=== PATIENT | female | born 1960 | race Caucasian/White ===

== ENCOUNTER 2017-08-20 13:17 | Inpatient (IN) | payer MEDICAID ==
[~2017-08-20] VITALS: Ht 152.4 cm; Wt 63.0 kg
--- NOTE | 2017-08-20 13:18 | NUR ---
PT TRANSFERRED FROM EMS [facility] TO BED 6
[2017-08-20 13:20] VITALS: BP 109/84
--- NOTE | 2017-08-20 13:20 | NUR ---
ASSUMED CARE OF PT AT THIS TIME. PT BIBA AND RECEIVED TO BED 6 VIA GURNEY. C/O ALOC WHILE RECEIVING DIALYSIS TODAY. PT IS ALERT TO NAME AND PLACE. C/O CP AND ABDOMINAL PAIN. NO RESPIRATORY DISTRESS NOTED. AAOX2 AND UNABLE TO AMBULATE; PATIENT STATES PAIN OF 9/10; VSS; PATIENT POSITIONED FOR COMFORT; HOB ELEVATED; BEDRAILS UP X2; BED DOWN. ER MD MADE AWARE OF PT STATUS. WILL CONTINUE TO MONITOR.
[2017-08-20] MEDS ORDERED: KETOROLAC 15 MG/ML VIAL IVP ONE (13:30)
[2017-08-20] MEDS ORDERED: NACL 0.9% 250 ML IV ONE (13:30)
[2017-08-20] MEDS ORDERED: ACETAMINOPHEN 325 MG TAB PO ONE (13:30)
[2017-08-20] MEDS ORDERED: ONDANSETRON 4 MG/2 ML VIAL IVP ONE (13:30)
--- NOTE | 2017-08-20 13:32 | NUR ---
REPORT GIVEN TO YVAN BOUDREAUX
[2017-08-20] MEDS ORDERED: PHO667 PO (13:42)
[2017-08-20] MEDS ORDERED: VITA1TAB83 PO (13:42)
--- NOTE | 2017-08-20 13:45 | NUR ---
ABG PROCEDURE COMPLETED SATURATION FLUCTUATION 89%-91% POST PUNCTURE PLACED PATIENT ON SUPPLEMENTAL OXYGEN AT 2 LPM VIA ALYSSA BOUDREAUX/YVAN NOTIFIED
[2017-08-20 14:24] LABS: HEMATOCRIT 22.6 % (36-48); HEMOGLOBIN 7.5 g/dL (12.0-16.0); MEAN CORPUSCULAR HEMOGLOBIN 29 pg (27-31); MEAN CORPUSCULAR HGB CONC 33 g/dL (33-37); MEAN CORPUSCULAR VOLUME 86.3 fL (80-94); PLATELET COUNT (AUTO) 324 K/uL (140-450); RED BLOOD CELL COUNT(AUTO) 2.62 MIL/uL (4.20-5.40); RED CELL DISTRIBUTION WIDTH 15.6 % (11.6-13.7); WHITE BLOOD COUNT (AUTO) 14.3 K/uL (4.8-10.8)
[2017-08-20 14:31] LABS: PROTHROMBIN TIME 11.3 secs (10.8-13.4)
[2017-08-20 14:37] LABS: ALBUMIN 1.8 g/dL (3.4-5.0); ANION GAP 11.8 (8-16); CARBON DIOXIDE 30.3 mmol/L (21-32); POTASSIUM 4.1 mmol/L (3.5-5.1); TOTAL BILIRUBIN 1.3 mg/dL (0.0-1.0)
[2017-08-20 14:41] LABS: LYMPHOCYTES % (MANUAL) 2 % (20-46); MONOCYTES % (MANUAL) 4 % (5-12)
[2017-08-20 14:50] LABS: CREATININE 4.1 mg/dL (0.6-1.3)
[2017-08-20] MEDS ORDERED: PIPERACILLIN/TAZOBACTAM 3.375 GM in DEXTROSE 5% 50 ML IV ONE (15:20)
[2017-08-20] MEDS ORDERED: PIPERACILLIN/TAZOBACTAM 3.375 GM VIAL IV ONE (15:27)
[2017-08-20] MEDS ORDERED: LORazepam 2 MG/ML VIAL IM/IVP PRN (16:05)
[2017-08-20] MEDS: NACL 0.9% 1,000 ML IV SCH (16:05)
[2017-08-20] MEDS ORDERED: ACETAMINOPHEN 325 MG TAB PO PRN (16:05)
[2017-08-20] MEDS ORDERED: DOCUSATE SODIUM 100 MG GELCAP PO PRN (16:05)
--- NOTE | 2017-08-20 16:45 | NUR ---
Patient will be admitted to care of MD RUSTY. Admited to TELE. Will go to room 114A. Belongings list completed. Report to YVAN BOSTON.
[2017-08-20 17:00] VITALS: BP 101/47
--- NOTE | 2017-08-20 17:00 | NUR ---
PATIENT BROUGHT TO UNIT VIA GURNEY FROM THE ER. PATIENT IN STABLE CONDITION. IS AAOX3. HAS IV TO THE RIGHT AC 18G, SALINE LOCK AT THIS TIME. HAS LEFT AV SHUNT. SKIN IS INTACT. MOVED HERSELF FROM THE GURNEY TO THE BED. ORIENTED PATIENT TO THE ROOM. EXPLAINED THE CALL LIGHT TO THE PATIENT AND SHE VERBALIZED UNDERSTANDING. BED IN LOWEST POSITION, SIDE RAILS UP X2, CALL LIGHT WITHIN REACH. WILL CONTINUE TO MONITOR.
[2017-08-20 17:14] LABS: CHOL/HDL RATIO 3.8 (1-4.5); MAGNESIUM 1.6 mg/dL (1.8-2.4); PHOSPHORUS 2.5 mg/dL (2.5-4.9); THYROID STIMULATING HORMONE 1.95 uIU/mL (0.34-3.74)
[2017-08-20] MEDS ORDERED: DEXTROSE 50% 50 ML SYR IVP PRN (19:25)
[2017-08-20] MEDS ORDERED: INSULIN LISPRO SLIDING SCALE 100 UNITS/ML VIAL SUBQ PRN (19:25)
--- NOTE | 2017-08-20 19:30 | NUR ---
ENDORSED PATIENT TO CONSTRUCTION SITE CROSSING GUARD RN FOR CONTINUITY OF CARE. PATIENT IN STABLE CONDITION.
--- NOTE | 2017-08-20 19:31 | NUR ---
REPORT RECEIVED FROM AM NURSE. PT IN STABLE CONDITION. AAOX3. INTRODUCED SELF AND BOARD UPDATED. HEART SOUNDS NORMAL. LUNG SOUNDS CLEAR BILATERALLY. BOWEL SOUNDS ACTIVE X4 QUADRANTS. IV SITE PATENT AND INTACT. SKIN WARM, DRY, AND INTACT WITH NO OPEN WOUNDS. LEFT UPPER CHEST AV SHUNT FOR HEMODIALYSIS ACCESS. PT REPORTS PAIN 6/10. WILL MEDICATE. BED LOCKED IN LOW POSITION. CALL HARTLEY WITHIN REACH. WILL CONTINUE TO MONITOR.
[2017-08-20 19:58] LABS: APPEARANCE,URINE CLOUDY (CLEAR); BILIRUBIN,URINE NEGATIVE (NEGATIVE); BLOOD, URINE 2+ (NEGATIVE); COLOR,URINE YELLOW (YELLOW); LEUKOCYTE ESTERASE ,URINE 3+ (NEGATIVE); NITRITE, URINE NEGATIVE (NEGATIVE); UGLUCOSE NEGATIVE (NEGATIVE)
[2017-08-20 20:00] VITALS: BP 96/47
[2017-08-20] MEDS: PIPER/TAZO 2.25GM/D5W PREMIX 50 ML IV SCH (20:27)
[2017-08-20 20:29] LABS: WBC,URINE TOO MANY TO COUNT /HPF (0-5)
[2017-08-20 20:30] LABS: RBC,URINE 3-10 (FEW) /HPF (0-5)
--- NOTE | 2017-08-20 20:30 | NUR ---
PM MEDS GIVEN. PT TOLERATED WELL. NORCO GIVEN FOR PAIN LEVEL 6/10.
[2017-08-20] MEDS: BLOOD GLUCOSE MONITORING 1 DEV DEV FS SCH (20:36)
[2017-08-20 20:37] LABS: BARBITURATE, URINE NEG. ng/ml (NEG <=200); BENZODIAZEPINE, URINE NEG. ng/mL (NEG <=200); CANNABINOID, URINE NEG. ng/mL (NEG <=50); COCAINE, URINE NEG. ng/mL (NEG <=300); OPIATE, URINE POS. ng/mL (NEG <=2000); PHENCYCLIDINE SCREEN,URINE NEG. ng/mL (NEG <=25)
[2017-08-20] MEDS: HYDROcodone/APAP 5/325 MG 1 TAB TAB PO PRN (20:41)
[2017-08-20] MEDS ORDERED: MAGNESIUM OXIDE 400 MG TAB PO SCH (21:00)
[2017-08-20] MEDS ORDERED: BISACODYL 10 MG SUPP RC SCH (21:00)
--- NOTE | 2017-08-20 21:06 | NUR ---
2100 GAVE SPUTUM CUP TO PATIENT. FAMILY MEMBERS EXPLAINED TO PT IN [place] TO GIVE SAMPLE. PT UNABLE TO AT THIS TIME
[2017-08-20] MEDS ORDERED: ALBUTEROL SULFATE/IPRATROPIU 3 ML SOL IH PRN (21:25)
[2017-08-20] MEDS: DOCUSATE SODIUM 100 MG GELCAP PO SCH (21:26)
--- NOTE | 2017-08-20 23:25 | NUR ---
PT ASLEEP BUT AROUSABLE. NOT IN ANY ACUTE DISTRESS. WILL CONTINUE TO MONITOR.
[2017-08-21] VITALS: BP 98/50
--- NOTE | 2017-08-21 00:30 | NUR ---
LAB ORDER FOR OCCULT BLOOD NEEDED. HEAVENLY SANTORO HELPED TRANSLATE NOT TO FLUSH SO SPECIMEN CAN BE ATTAINED.
--- NOTE | 2017-08-21 03:30 | NUR ---
PT HAS IV SITE PAIN. CANNULA WAS PULLED HALF WAY OUT WHEN ASSESSED. RIGHT AC 18G DC AT 0330.
[2017-08-21 04:00] VITALS: BP 104/48
[2017-08-21] MEDS: PIPER/TAZO 2.25GM/D5W PREMIX 50 ML IV SCH ×3 (04:00→21:35)
--- NOTE | 2017-08-21 04:00 | NUR ---
NEW IV PLACED. 24G RIGHT WRIST. 3 ATTEMPTS WERE MADE. PT TOLERATED WELL.
--- NOTE | 2017-08-21 04:00 | NUR ---
CARRI ANTON. PT TOLERATED WELL. WILL CONTINUE TO MONITOR.
[2017-08-21 06:23] LABS: BASOPHILS # (AUTO) 0.1 K/uL (0.00-0.22); EOSINOPHILS # (AUTO) 0.1 K/uL (0-0.4); EOSINOPHILS % (AUTO) 0.9 % (0.0-4.0); LYMPHOCYTES # (AUTO) 0.7 K/uL (2.5-16.5); LYMPHOCYTES % (AUTO) 6.2 % (20.5-51.1); MEAN CORPUSCULAR HEMOGLOBIN 29 pg (27-31); MEAN CORPUSCULAR HGB CONC 33 g/dL (33-37); MEAN CORPUSCULAR VOLUME 88.5 fL (80-94); MONOCYTES # (AUTO) 0.5 K/uL (0.8-1.0); MONOCYTES % (AUTO) 4.5 % (1.7-9.3); NEUTROPHILS # (AUTO) 10.6 K/uL (1.8-7.7); NEUTROPHILS % (AUTO) 87.4 % (42.2-75.2); PLATELET COUNT (AUTO) 291 K/uL (140-450); RED BLOOD CELL COUNT(AUTO) 2.37 MIL/uL (4.20-5.40); RED CELL DISTRIBUTION WIDTH 15.4 % (11.6-13.7); WHITE BLOOD COUNT (AUTO) 12.1 K/uL (4.8-10.8)
--- NOTE | 2017-08-21 06:30 | NUR ---
DOWNTIME FROM 4-6AM.
[2017-08-21] MEDS: BLOOD GLUCOSE MONITORING 1 DEV DEV FS SCH ×4 (06:47→21:30)
--- NOTE | 2017-08-21 07:15 | NUR ---
RECEIVED REPORT FROM CASH APPLICATIONS SPECIALIST NURSE AT BEDSIDE. PT IS A/O X4. R WRIST 20 G WITH NS AT 100ML/HR. L UPPER CHEST AV SHUNT. SKIN IS INTACT. BED IS LOCKED, LOW POSITION, SIDE RAILS UP X2. CALL LIGHT WITHIN REACH. BOARD UPDATED. WILL CONTINUE TO MONITOR.
--- NOTE | 2017-08-21 07:15 | NUR ---
REPORT GIVEN TO AM NURSE. PT IN STABLE CONDITION.
--- NOTE | 2017-08-21 07:33 | NUR ---
JANIS FROM LAB CALLED TO REPORT HGB 6.9 AND HCT 21. HAS BEEN NOTIFIED.
[2017-08-21 07:35] LABS: HEMOGLOBIN 6.9 g/dL (12.0-16.0)
--- NOTE | 2017-08-21 07:59 | NUR ---
PT CANNOT PRODUCE SPUTUM AT THIS TIME
[2017-08-21 08:00] VITALS: BP 108/52
[2017-08-21 08:22] LABS: PHOSPHORUS 4.1 mg/dL (2.5-4.9)
--- NOTE | 2017-08-21 08:35 | NUR ---
PATIENT HAS BEEN SCREENED AND CATEGORIZED HIGH NUTRITION RISK. PATIENT WILL BE SEEN WITHIN 1-2 DAYS OF ADMISSION. 08/21/17 08/22/[address]
[2017-08-21] MEDS: FERROUS GLUCONATE 324 MG TAB PO SCH ×2 (08:41→16:35)
[2017-08-21] MEDS: FOLIC ACID 1 MG TAB PO SCH (08:41)
[2017-08-21] MEDS: DOCUSATE SODIUM 100 MG GELCAP PO SCH ×2 (08:41→21:30)
[2017-08-21] MEDS: LACTOBACILLUS RHAMNOSUS GG 1 EACH CAP PO SCH (08:42)
[2017-08-21] MEDS: CALCIUM ACETATE 667 MG TAB PO SCH ×3 (08:42→16:35)
[2017-08-21] MEDS: VITAMIN B COMPLEX W/C 1 TAB PO SCH (08:42)
[2017-08-21] MEDS: NACL 0.9% 1,000 ML IV SCH ×2 (08:45→12:05)
--- NOTE | 2017-08-21 08:50 | NUR ---
ADMINISTERED MORNING MEDS TO PT. PT TOLERATED WELL. ASSISTED PT TO BATHROOM. AT BEDSIDE ASSESSING PT.
--- NOTE | 2017-08-21 08:52 | NUR ---
RADIOLOGY HERE TO TAKE PT FOR CT SCAN.
--- NOTE | 2017-08-21 09:12 | NUR ---
PT IS BACK FROM RADIOLOGY.
[2017-08-21 09:25] LABS: ANION GAP 17.5 (8-16); CARBON DIOXIDE 27.7 mmol/L (21-32); POTASSIUM 5.2 mmol/L (3.5-5.1)
[2017-08-21 09:27] LABS: CREATININE 5.2 mg/dL (0.6-1.3)
--- NOTE | 2017-08-21 11:38 | NUR ---
ADMINISTERED AFTERNOON MEDS. PT TOLERATED WELL. BS 91, NO COVERAGE NEEDED.
[2017-08-21 12:00] VITALS: BP 122/59
--- NOTE | 2017-08-21 12:20 | NUR ---
IV STARTED BY CHARGE NURSE. R HAND 22G. 2ND ATTEMPT. PT TOLERATED WELL. WILL CONTINUE TO MONITOR PT.
--- NOTE | 2017-08-21 14:10 | NUR ---
CAME TO ASSESS PT. PT C/O OF PAIN. PT DOES NOT WANT ANY PAIN MEDICATION. WILL CONTINUE TO MONITOR.
--- NOTE | 2017-08-21 14:44 | NUR ---
Clinical review faxed to Rey at [phone]
[2017-08-21 16:00] VITALS: BP 113/52
[2017-08-21] MEDS ORDERED: SODIUM FERRIC GLUCONATE 125 MG in NACL 0.9% 100 ML IV SCH (16:00)
--- NOTE | 2017-08-21 16:40 | NUR ---
ADMINISTERED EVENING MEDS. PT TOLERATED WELL. BS CHECKED, 91. NO COVERAGE NEEDED. PT IS BACK ASLEEP. WILL CONTINUE TO MONITOR.
[2017-08-21] MEDS: NACL 0.9% 250 ML IV SCH (17:13)
[2017-08-21] MEDS ORDERED: SODIUM POLYSTYRENE 15 GM/60 ML UDBTL PO SCH (17:15)
--- NOTE | 2017-08-21 17:31 | NUR ---
TELEPHONE STERILIZER AT BEDSIDE DRAWING BLOOD. NO SIGNS OF DISTRESS. WILL CONTINUE TO MONITOR.
--- NOTE | 2017-08-21 19:22 | NUR ---
ENDORSED PT TO ENERGY EFFICIENCY SPECIALIST NURSE FOR CONTINUITY OF CARE. PT IN STABLE CONDITION.
--- NOTE | 2017-08-21 19:23 | NUR ---
RECEIVED REPORT FROM DAY SHIFT NURSE CHRIS SANTORO. PT IN STABLE CONDITION. NO S/S OF DISTRESS NOTED. RR EVEN/UNLABORED. LUNG SOUNDS CLEAR BILAT. BOWEL SOUNDS PRESENT AND ACTIVE. PT IS AMBULATORY;SKIN INTACT, WARM DRY AND COLOR WNL. IV TO R HAND 22G PATENT AND INTACT, INFUSING WELL. INITIAL ASSESSMENT COMPLETED. PLAN OF CARE DISCUSSED WITH PT. PT MADE AWARE THAT SHE NEEDS TO PROVIDE STOOL AND SPUTUM WHEN SHE IS ABLE. PT VERBALIZED UNDERSTANDING. ALL SAFETY PRECAUTIONS MET, CALL LIGHT WITHIN REACH, WILL CONTINUE TO MONITOR
[2017-08-21 20:00] VITALS: BP 126/56
--- NOTE | 2017-08-21 22:30 | NUR ---
PT HAD BM IN THE BATHROOM WHEN I WENT TO COLLECT THE SPECIMEN FROM HAT IT WAS EMPTY. WHEN I ASKED PT WHAT HAPPENED SHE SAID SHE FLUSHED IT DOWN THE TOILET. SHE STATED, "I WAS SO EMBARRASSED FOR YOU GUYS TO SEE MY STINKY SHIT." I EDUCATED PT THAT WE NEED TO TEST THE STOOL FOR BLOOD. PT VERBALIZED UNDERSTANDING BUT STATED SHE WAS EMBARRASSED. SHE STATED SHE WILL NEXT TIME.
[2017-08-22] VITALS: BP 106/52
--- NOTE | 2017-08-22 01:30 | NUR ---
PT RESTING COMFORTABLY IN BED. NO S/S OF DISTRESS NOTED. RR EVEN/UNLABORED
[2017-08-22] MEDS: HYDROcodone/APAP 5/325 MG 1 TAB TAB PO PRN (02:51)
--- NOTE | 2017-08-22 03:30 | NUR ---
PT RESTING COMFORTABLY IN BED. NO S/S OF DISTRESS NOTED. RR EVEN/UNLABORED
[2017-08-22 04:00] VITALS: BP 116/54
[2017-08-22] MEDS: PIPER/TAZO 2.25GM/D5W PREMIX 50 ML IV SCH ×3 (05:09→20:42)
[2017-08-22] MEDS: BLOOD GLUCOSE MONITORING 1 DEV DEV FS SCH ×4 (05:12→20:53)
[2017-08-22] MEDS ORDERED: ACETAMINOPHEN EXTRA STRENGTH 500 MG TAB PO SCH (06:00)
[2017-08-22] MEDS: CALCIUM ACETATE 667 MG TAB PO SCH ×3 (06:36→16:25)
[2017-08-22 07:28] LABS: BASOPHILS # (AUTO) 0.1 K/uL (0.00-0.22); BASOPHILS % (AUTO) 0.3 % (0.0-2.0); EOSINOPHILS # (AUTO) 0.1 K/uL (0-0.4); EOSINOPHILS % (AUTO) 0.6 % (0.0-4.0); HEMOGLOBIN 7.9 g/dL (12.0-16.0); LYMPHOCYTES # (AUTO) 1.5 K/uL (2.5-16.5); LYMPHOCYTES % (AUTO) 9.3 % (20.5-51.1); MEAN CORPUSCULAR HEMOGLOBIN 29 pg (27-31); MEAN CORPUSCULAR HGB CONC 33 g/dL (33-37); MEAN CORPUSCULAR VOLUME 87.7 fL (80-94); MONOCYTES # (AUTO) 0.8 K/uL (0.8-1.0); MONOCYTES % (AUTO) 4.9 % (1.7-9.3); NEUTROPHILS % (AUTO) 84.9 % (42.2-75.2); PLATELET COUNT (AUTO) 339 K/uL (140-450); RED BLOOD CELL COUNT(AUTO) 2.74 MIL/uL (4.20-5.40); RED CELL DISTRIBUTION WIDTH 15.7 % (11.6-13.7); WHITE BLOOD COUNT (AUTO) 16.5 K/uL (4.8-10.8)
--- NOTE | 2017-08-22 07:29 | NUR ---
REPORT GIVEN TO DAY NURSE FOR CONTINUITY OF CARE, PT IN STABLE CONDITION.
--- NOTE | 2017-08-22 07:29 | NUR ---
RECEIVED REPORT FROM DINING ROOM SUPERVISOR NURSE AT BEDSIDE. PT IS A/O X4. R HAND IV 22G WITH NS AT 5ML/ HR TKO. SKIN IS INTACT. NO COMPLAINTS OF PAIN. STOOL SAMPLE STILL NEEDS TO BE COLLECTED, PT IS AWARE. BED IS LOCKED, LOW POSITION WITH SIDE RAILS UP X2. BOARD UPDATED. WILL CONTINUE TO MONITOR.
[2017-08-22 07:31] LABS: ANION GAP 17.6 (8-16); CARBON DIOXIDE 25.9 mmol/L (21-32); POTASSIUM 4.5 mmol/L (3.5-5.1)
[2017-08-22 07:40] LABS: MAGNESIUM 1.9 mg/dL (1.8-2.4); PHOSPHORUS 3.8 mg/dL (2.5-4.9)
[2017-08-22 07:57] LABS: CREATININE 6.2 mg/dL (0.6-1.3)
[2017-08-22 08:00] VITALS: BP 96/56
[2017-08-22] MEDS: FERROUS GLUCONATE 324 MG TAB PO SCH ×2 (08:32→16:25)
[2017-08-22] MEDS: LACTOBACILLUS RHAMNOSUS GG 1 EACH CAP PO SCH (08:33)
[2017-08-22] MEDS: FOLIC ACID 1 MG TAB PO SCH (08:33)
[2017-08-22] MEDS: VITAMIN B COMPLEX W/C 1 TAB PO SCH (08:33)
[2017-08-22] MEDS: DOCUSATE SODIUM 100 MG GELCAP PO SCH ×2 (08:33→20:43)
--- NOTE | 2017-08-22 08:38 | NUR ---
ADMINISTERED MORNING MEDS. PT TOLERATED WELL. PT IN BED RESTING COMFORTABLY. NO SIGNS OF DISTRESS. WILL RECEIVE DIALYSIS LATER.
--- NOTE | 2017-08-22 11:19 | NUR ---
BS CHECKED, 100. NO COVERAGE NEEDED. VS WITHIN NORMAL LIMITS. PT IN BED RESTING. NO SIGNS OF DISTRESS. LUNCH WILL ARRIVE SOON. WILL CONTINUE TO MONITOR.
--- NOTE | 2017-08-22 11:30 | NUR ---
PT C/O PAIN AND BURNING WHEN SWALLOWING FOOD AND PILLS. MD IS AWARE.
[2017-08-22 12:00] VITALS: BP 129/57
--- NOTE | 2017-08-22 12:31 | NUR ---
ABX INFUSING. PT IS SLEEPING COMFORTABLY IN BED. NO SIGNS OF DISTRESS. WILL CONTINUE TO MONITOR.
[2017-08-22] MEDS ORDERED: SODIUM FERRIC GLUCONATE 125 MG in NACL 0.9% 100 ML IV SCH (14:00)
--- NOTE | 2017-08-22 14:33 | NUR ---
PT IN BED WATCHING TV. NO SIGNS OF DISTRESS. WILL CONTINUE TO MONITOR.
--- NOTE | 2017-08-22 14:45 | NUR ---
08/22/17 RD INITIAL ASSESSMENT COMPLETED PLEASE REFER TO NUTRITION ASSESSMENT UNDER CARE ACTIVITY FOR ESTIMATED NUTRITIONAL NEEDS. 1. CONTINUE RENAL DIET TOLERATED 2. RECOMMEND NEPRO CARB STEADY QD 3. PROVIDED RENAL DIET EDUCATION 4. RD TO FOLLOW-UP 2-3 DAYS, HIGH RISK WILLY GALO, RD
[2017-08-22] MEDS: MORPHINE SULFATE 2 MG/ML SYR IVP PRN ×2 (14:50→20:42)
--- NOTE | 2017-08-22 15:04 | NUR ---
Clinical review faxed to Susana at [facility] at [phone] and she stated that she received both yesterday and today reviews.
--- NOTE | 2017-08-22 15:30 | NUR ---
DIALYSIS NURSE HERE TO BEGIN HD. PT IN STABLE CONDITION.
[2017-08-22 16:00] VITALS: BP 116/54
--- NOTE | 2017-08-22 16:38 | NUR ---
BS CHECKED, 139. NO COVERAGE NEEDED. VS WITHIN NORMAL LIMITS. WILL CONTINUE TO MONITOR.
--- NOTE | 2017-08-22 18:54 | NUR ---
DIALYSIS NURSE DONE WITH HD. 2.8L REMOVED. PT IN STABLE CONDITION.
--- NOTE | 2017-08-22 19:10 | NUR ---
ENDORSED PT TO WIND ENERGY PROJECT MANAGER NURSE FOR CONTINUITY OF CARE. PT IN STABLE CONDITION.
--- NOTE | 2017-08-22 19:20 | NUR ---
RECEIVED REPORT FROM DAY SHIFT, PATIENT RESTING IN BED, NO S/S OF DISTRESS NOTED, RESPIRATION EVEN AND UNLABORED, DIALYSIS JUST FINISHED. IV PATENT AND INTACT. DINNER IN FRONT OF PATIENT SHE REQUESTED. CALL LIGHT WITHIN REACH, SAFETY MEASURE ENSURED, WILL CONTINUE TO MONITOR.
[2017-08-22] MEDS: NACL 0.9% 250 ML IV SCH (20:41)
[2017-08-22] MEDS: metroNIDAZOLE 500 MG/NS PREMIX 100 ML IV SCH (20:42)
--- NOTE | 2017-08-22 20:42 | NUR ---
BP 111/52, HR 107, PAIN 8/10, MORPHINE GIVEN ORDERED. PATIENT TOLERATED WELL. NO S/S OF DISTRESS NOTED, WILL CONTINUE TO MONITOR.
[2017-08-22] MEDS: ZOLPIDEM 5 MG TAB PO PRN (20:43)
--- NOTE | 2017-08-22 22:20 | NUR ---
DR. PERKINS SAID PATIENT DOES NOT NEED BLOOD TRANSFUSION.
[2017-08-23] VITALS: BP 125/56
[2017-08-23] MEDS: HYDROcodone/APAP 5/325 MG 1 TAB TAB PO PRN ×3 (00:08→21:07)
--- NOTE | 2017-08-23 00:10 | NUR ---
VITAL SIGNS STABLE, NORCO GIVEN ORDERED. CALL LIGHT WITHIN REACH, SAFETY MEASURE ENSURED, WILL CONTINUE TO MONITOR.
--- NOTE | 2017-08-23 02:31 | NUR ---
NO CHANGE IN CONDITION. PATIENT IS SLEEPING, NO S/S OF DISTRESS NOTED, RESPIRATION EVEN AND UNLABORED, ON ROOM AIR. CALL LIGHT WITHIN REACH, SAFETY MEASURE ENSURED, WILL CONTINUE TO MONITOR.
--- NOTE | 2017-08-23 04:19 | NUR ---
PATIENT IS SLEEPING, NO S/S OF DISTRESS NOTED, RESPIRATION EVEN AND UNLABORED, ON ROOM AIR. CALL LIGHT WITHIN REACH, SAFETY MEASURE ENSURED, WILL CONTINUE TO MONITOR.
[2017-08-23] MEDS: metroNIDAZOLE 500 MG/NS PREMIX 100 ML IV SCH ×3 (05:04→21:06)
[2017-08-23] MEDS: PIPER/TAZO 2.25GM/D5W PREMIX 50 ML IV SCH ×3 (05:04→21:06)
--- NOTE | 2017-08-23 06:06 | NUR ---
NO BOWEL MOVEMENT THROUGHOUT THE NIGHT AND NO SPUTUM WELL. PATIENT VERBALIZED UNDERSTANDING THAT STOOL AND SPUTUM NEEDED FOR LAB.
[2017-08-23] MEDS: BLOOD GLUCOSE MONITORING 1 DEV DEV FS SCH ×4 (06:46→21:06)
[2017-08-23] MEDS: CALCIUM ACETATE 667 MG TAB PO SCH ×3 (06:51→17:27)
[2017-08-23 07:17] LABS: HEPATITIS A ANTIBODY IGM Negative (Negative); HEPATITIS B CORE AB TOTAL Negative (Negative); HEPATITIS B SURFACE ANTIBODY Non Reactive (.); HEPATITIS B SURFACE ANTIGEN Negative (Negative)
[2017-08-23 07:29] LABS: ANION GAP 19.6 (8-16); CARBON DIOXIDE 25.1 mmol/L (21-32); CREATININE 3.7 mg/dL (0.6-1.3); POTASSIUM 3.7 mmol/L (3.5-5.1)
[2017-08-23 07:31] LABS: BASOPHILS % (AUTO) 0.2 % (0.0-2.0); EOSINOPHILS # (AUTO) 0.1 K/uL (0-0.4); EOSINOPHILS % (AUTO) 0.5 % (0.0-4.0); LYMPHOCYTES # (AUTO) 1.3 K/uL (2.5-16.5); LYMPHOCYTES % (AUTO) 8.5 % (20.5-51.1); MEAN CORPUSCULAR HEMOGLOBIN 29 pg (27-31); MEAN CORPUSCULAR HGB CONC 32 g/dL (33-37); MEAN CORPUSCULAR VOLUME 89.1 fL (80-94); MONOCYTES # (AUTO) 0.7 K/uL (0.8-1.0); MONOCYTES % (AUTO) 4.4 % (1.7-9.3); NEUTROPHILS # (AUTO) 12.9 K/uL (1.8-7.7); NEUTROPHILS % (AUTO) 86.4 % (42.2-75.2); PLATELET COUNT (AUTO) 252 K/uL (140-450); RED CELL DISTRIBUTION WIDTH 15.2 % (11.6-13.7); WHITE BLOOD COUNT (AUTO) 14.9 K/uL (4.8-10.8)
[2017-08-23 07:35] LABS: MAGNESIUM 1.4 mg/dL (1.8-2.4); PHOSPHORUS 3.8 mg/dL (2.5-4.9)
--- NOTE | 2017-08-23 07:36 | NUR ---
ENDORSED PLAN OF CARE TO DAY SHIFT NURSE. PATIENT IS IN STABLE CONDITION.
--- NOTE | 2017-08-23 07:40 | NUR ---
RECEIVED PT FROM FASHION BUYER NURSE, AUBREE, PT IS ASLEEP AND SIDE RAILS ARE UP, CALL LIGHT WITHIN REACH. PT HAS AN IV LINE ON THE RT HAND G. 22 SALINE LOCK. NO SIGN OF DISTRESS NOTED AND RESPIRATION EVEN. WILL CONTINUE TO MONITOR.
[2017-08-23 08:00] VITALS: BP 110/61
--- NOTE | 2017-08-23 08:00 | NUR ---
PT IS AWAKE AND VITAL SIGNS TAKEN AND IS STABLE. NO SIGN OF DISTRESS NOTED AND WILL CONTINUE TO MONITOR.
[2017-08-23] MEDS: LACTOBACILLUS RHAMNOSUS GG 1 EACH CAP PO SCH (08:10)
[2017-08-23] MEDS: DOCUSATE SODIUM 100 MG GELCAP PO SCH ×2 (08:10→21:07)
[2017-08-23] MEDS: VITAMIN B COMPLEX W/C 1 TAB PO SCH (08:10)
[2017-08-23] MEDS: FERROUS GLUCONATE 324 MG TAB PO SCH ×2 (08:11→17:27)
[2017-08-23] MEDS: FOLIC ACID 1 MG TAB PO SCH (08:11)
[2017-08-23 08:16] LABS: HEMATOCRIT 16.1 % (36-48); HEMOGLOBIN 5.2 g/dL (12.0-16.0)
[2017-08-23] MEDS ORDERED: ACETAMINOPHEN EXTRA STRENGTH 500 MG TAB PO SCH (09:30)
--- NOTE | 2017-08-23 09:33 | NUR ---
PT NOTES CHART REVIEWED AND CLEARED FOR PT BY RN. PATIENT SITTING AT EOB RESTING EATING BREAKFAST. PATIENT ASKED IF POSSIBLE TO RETURN AT LATER TIME. NO OTHER NEEDS AT THIS TIME. RETURNED TO PATIENTS ROOM TO ATTEMPT THERAPY, CURRENTLY IN SEMIFOWLER POSITION RESTING. PATIENT STATING, "I JUST GOT COMFORTABLE, IT'S RARE THAT I GET COMFORTABLE LIKE THIS". EDUCATION ON BENEFITS OF CONTINUED PARTICIPATION IN THERAPY AND MOTIVATION PROVIDED, BUT DECLINED AT THIS TIME. TRAY AND CALL LIGHT IN REACH. RETURNED ABOUT 30MIN TO ATTEMPT THERAPY, CONTINUES TO BE IN SEMIFOWLER POSITION SLEEPING, BUT EASILY AROUSED. PATIENT CONTINUES TO DECLINE ACTIVE PARTICIPATION IN THERAPY, NO PAIN EXPRESSED, BUT EXPRESSING GENERAL FATIGUE. BP TAKEN 101/47, HR 102, O2 ON RA 97%. PATIENT NOTED WITH HGB 5.2 (RN AWARE). EDUCATED PATIENT TO CONTINUE PERFORMING HEP AND DEMONSTRATED FEW LE AROM. WILL FOLLOW UP PATIENT TOMORROW IF POSSIBLE. TRAY AND CALL LIGHT IN REACH. RN AWARE. PVEx1 Addendum: 08/23/17 at 1748 by Magaly Vivar PT PHYSICAL THERAPY CO-SIGN The Physical Therapy Progress Notes documented by Excelsior Machine Tender have been reviewed. Reviewed/Co-Signed by: Magaly Vivar PT Documentation Done by:FREDERICK PEREZ PTA
[2017-08-23] MEDS ORDERED: MAGNESIUM HYDROXIDE 2400 MG/30 ML UDC PO PRN (10:30)
[2017-08-23] MEDS: MORPHINE SULFATE 2 MG/ML SYR IVP PRN (10:57)
--- NOTE | 2017-08-23 10:57 | NUR ---
PT VERBALIZED A PIN RATE OF 9/10, MEDICATION GIVEN AND PT TOLERATED IT. WILL CONTINUE TO MONITOR AND RE-ASSESSED.
--- NOTE | 2017-08-23 11:54 | NUR ---
FAXED CONCURRENT REVIEW TO [facility] [phone] PHONE CAROLINE [phone]. I CALLED CAROLINE AND INFORMED HER THAT THIS PATIENT NEEDED TRANSFER TO HIGHER LEVEL OF CARE. CAROLINE SAID THAT SHE IS CAPITATED TO [facility] AND THE HOSPITAL IS [facility]. SHE GAVE ME THE PHONE NUMBER TO THE HOSPITALIST, DR CAM FOR OUR PHYSICIAN TO CALL TO GIVE REPORT AND TO SEE IF HE WILL ACCEPT THE PATIENT. I INFORMED DR. OREILLY.
--- NOTE | 2017-08-23 12:00 | NUR ---
RECEIVED BEDSIDE REPORT FROM YVAN SCHUMACHER. PATIENT IS SLEEPING. NO SIGNS OF DISTRESS ON ROOM AIR. PATIENT AMBULATES TO THE RESTROOM. MASS ON BACK, TENDER TO TOUCH. VITALS ARE WITHIN NORMAL LIMITS. IV ON R WRIST 20G INFUSING NS AT 10 TO KEEP VEIN OPEN. IV IS CLEAN, DRY AND INTACT. SHUNT ON L SIDE, NO B/P OR VENIPUNCTURE, SIGNS ARE POSTED. DIALYSIS DONE YESTERDAY. BED IN LOW POSITION. CALL LIGHT WITHIN REACH. WILL CONTINUE TO MONITOR THE PATIENT.
--- NOTE | 2017-08-23 12:30 | NUR ---
BLOOD TRANSFUSION STARTED. PATIENT TOLERATING WELL. WILL MONITOR THE PATIENT.
--- NOTE | 2017-08-23 13:11 | NUR ---
ADMINISTERED MEDS. PATIENT TOLERATED WELL. WILL CONTINUE TO MONITOR THE PATIENT.
--- NOTE | 2017-08-23 15:31 | NUR ---
BLOOD TRANSFUSION ENDED. VITALS ARE WITHIN NORMAL LIMITS. NO REACTION TO TRANSFUSION. BED IN LOW POSITION. CALL LIGHT WITHIN REACH. WILL CONTINUE TO MONITOR THE PATIENT.
[2017-08-23 16:00] VITALS: BP 108/56
--- NOTE | 2017-08-23 16:07 | NUR ---
ADMINISTERED MEDS. PATIENT TOLERATED WELL. IV IS CLEAN, DRY AND INTACT. WILL CONTINUE TO MONITOR THE PATIENT.
--- NOTE | 2017-08-23 16:47 | NUR ---
SPOKE WITH DR OREILLY EARLIER AND HE SAID HE TRIED TO CALL DR. CAM, BUT HE WAS OUT OF TOWN. HE DID PUT IN A CALL TO THE HOSPITALIST FOR TODAY, DR. MENSAH AND DR. OREILLY SPOKE WITH HIM. THE PHYSICIAN WAS GOING TO CALL THE CHIP BIN OPERATOR AND GET BACK. TO DR. OREILLY. NO CALL BACK SO I CALLED [facility] AND SPOKE WITH CAROLINE, . SHE SAID SHE WOULD SPEAK WITH HER INSTRUCTOR PHYSICAL. CAROLINE CALLED BACK AND SHE WANTED DR. OREILLY TO CALL THE IR PHYSICIAN AT [facility], DR. BO AT [phone]. I INFORMED DR. OREILLY. IF DR. BO CAN DO THE PROCEDURE, HE WOULD HAVE DR. MENSAH BE THE ACCEPTING. I SPOKE WITH CAROLINE AND GAVE HER THE PHONE NUMBER TO THE FLOOR IN CASE THEY GET AN ACCEPTING PHYSICIAN AND HOSPITAL. I ASKED HER FOR THE LOCOMOTIVE MECHANIC CM FOR [facility] AND SHE SAID THE PHONE NUMBER IS [phone]. Addendum: 08/23/17 at [address] BO CALLED AND I TRANSFERRED HIS CALL TO DR. POWELL.
[2017-08-23] MEDS: NACL 0.9% 250 ML IV SCH (17:28)
--- NOTE | 2017-08-23 17:31 | NUR ---
ADMINISTERED MEDS. PATIENT TOLERATED WELL. IV IS CLEAN, DRY AND INTACT. WILL CONTINUE TO MONITOR THE PATIENT.
[2017-08-23 18:07] LABS: BASOPHILS # (AUTO) 0.2 K/uL (0.00-0.22); EOSINOPHILS # (AUTO) 0.2 K/uL (0-0.4); EOSINOPHILS % (AUTO) 0.9 % (0.0-4.0); HEMATOCRIT 22.2 % (36-48); HEMOGLOBIN 7.3 g/dL (12.0-16.0); LYMPHOCYTES # (AUTO) 1.9 K/uL (2.5-16.5); LYMPHOCYTES % (AUTO) 10.7 % (20.5-51.1); MEAN CORPUSCULAR HEMOGLOBIN 29 pg (27-31); MEAN CORPUSCULAR HGB CONC 33 g/dL (33-37); MEAN CORPUSCULAR VOLUME 87.3 fL (80-94); MONOCYTES # (AUTO) 0.9 K/uL (0.8-1.0); NEUTROPHILS # (AUTO) 14.4 K/uL (1.8-7.7); NEUTROPHILS % (AUTO) 82.4 % (42.2-75.2); PLATELET COUNT (AUTO) 295 K/uL (140-450); RED BLOOD CELL COUNT(AUTO) 2.54 MIL/uL (4.20-5.40); RED CELL DISTRIBUTION WIDTH 15.5 % (11.6-13.7); WHITE BLOOD COUNT (AUTO) 17.5 K/uL (4.8-10.8)
--- NOTE | 2017-08-23 18:50 | NUR ---
PATIENT REFUSED SECOND TRANSFUSION, SHE SAID MAYBE TOMORROW. SHE STATES THAT SHE VOMITED AND I WAS NOT AWARE. PATIENT DID NOT TELL ME ABOUT VOMITING POST TRANSFUSION UNTIL NOW. WILL ENDORSE TO LOSS PREVENTION AND SAFETY MANAGER NURSE.
--- NOTE | 2017-08-23 19:00 | NUR ---
GAVE BEDSIDE REPORT TO CERAMIC WORKER NURSE. PATIENT IS IN STABLE CONDITION.
--- NOTE | 2017-08-23 19:15 | NUR ---
RECEIVED REPORT FROM DAY SHIFT, PATIENT RESTING IN BED, NO S/S OF DISTRESS NOTED, RESPIRATION EVEN AND UNLABORED, ON ROOM AIR. IV PATENT AND INTACT, CALL LIGHT WITHIN REACH, SAFETY MEASURE ENSURED, WILL CONTINUE TO MONITOR.
[2017-08-23 20:00] VITALS: BP 116/61
[2017-08-23] MEDS ORDERED: BISACODYL 10 MG SUPP RC ONE (20:25)
--- NOTE | 2017-08-23 20:25 | NUR ---
NO SPUTUM COLLECTED, AND NO BOWEL MOVEMENT SINCE 08/21/17. MADE DR. PERKINS AWARE, WILL CONTINUE TO MONITOR.
--- NOTE | 2017-08-23 20:45 | NUR ---
PER DAY SHIFT NURSE JAMISON, PATIENT REFUSED THE SECOND UNIT OF PRBC, DR. PERKINS CAME AND ASSESSED THE PATIENT AT THE BEDSIDE, PATIENT AGREE TO RECEIVE THE SECOND UNIT OF BLOOD AT A LATER TIME TONIGHT. PATIENT IS IN STABLE CONDITION, WILL CONTINUE TO MONITOR.
[2017-08-23] MEDS ORDERED: BISACODYL 5 MG TABEC PO SCH (21:00)
[2017-08-23] MEDS: ZOLPIDEM 5 MG TAB PO PRN (21:07)
--- NOTE | 2017-08-23 21:14 | NUR ---
DUE MEDICATION GIVEN, PATIENT TOLERATED WELL. NO S/S OF DISTRESS NOTED, RESPIRATION EVEN AND UNLABORED, SAFETY MEASURE ENSURED, WILL CONTINUE TO MONITOR.
--- NOTE | 2017-08-23 23:30 | NUR ---
TALKED WITH THE STAFF RASHAUN FROM BLOOD BANK, THE SECOND UNIT OF PRBC IS NOT AVAILABLE AT THIS TIME, MADE CHARGE NURSE AWARE, MADE DR. PERKINS AWARE, AND DR. PERKINS SAID," OKAY, JUST HOLD THE SECOND UNIT FOR TONIGHT, AND RECHECK THE LABS TOMORROW."
[2017-08-23 23:50] VITALS: BP 126/57
--- NOTE | 2017-08-24 02:03 | NUR ---
PATIENT IS SLEEPING, NO S/S OF DISTRESS NOTED, RESPIRATION EVEN AND UNLABORED, ON ROOM AIR. CALL LIGHT WITHIN REACH, SAFETY MEASURE ENSURED, WILL CONTINUE TO MONITOR.
[2017-08-24] MEDS: PIPER/TAZO 2.25GM/D5W PREMIX 50 ML IV SCH ×2 (04:00→13:54)
[2017-08-24] MEDS: metroNIDAZOLE 500 MG/NS PREMIX 100 ML IV SCH ×2 (04:00→13:55)
[2017-08-24 04:03] VITALS: BP 122/63
--- NOTE | 2017-08-24 04:06 | NUR ---
VITAL SIGNS STABLE, NO BOWEL MOVEMENT YET. CALL LIGHT WITHIN REACH, SAFETY MEASURE ENSURED, WILL CONTINUE TO MONITOR.
--- NOTE | 2017-08-24 04:35 | NUR ---
JOANNA FROM RADIOLOGY DEPARTMENT SAID SHE WOULD COME TO DO THE CT ABDOMEN WITHOUT CONTRAST AROUND 0530 AM.
--- NOTE | 2017-08-24 05:50 | NUR ---
PATIENT OFF THE UNIT FOR CT ABDOMEN, PATIENT IS IN STABLE CONDITION.
[2017-08-24] MEDS: CALCIUM ACETATE 667 MG TAB PO SCH ×3 (06:39→16:44)
[2017-08-24] MEDS: MORPHINE SULFATE 2 MG/ML SYR IVP PRN (06:39)
[2017-08-24] MEDS: BLOOD GLUCOSE MONITORING 1 DEV DEV FS SCH ×3 (06:43→16:51)
--- NOTE | 2017-08-24 06:46 | NUR ---
BACK FROM RADIOLOGY DEPARTMENT, STATED BACK PAIN 11/12, BP 115/79, HR 96, MORPHINE ADMINISTER ORDERED. PATIENT TOLERATED WELL. CALL LIGHT WITHIN REACH, SAFETY MEASURE ENSURED, WILL CONTINUE TO MONITOR.
[2017-08-24 07:38] LABS: BASOPHILS # (AUTO) 0.1 K/uL (0.00-0.22); BASOPHILS % (AUTO) 0.3 % (0.0-2.0); EOSINOPHILS # (AUTO) 0.1 K/uL (0-0.4); EOSINOPHILS % (AUTO) 0.6 % (0.0-4.0); HEMATOCRIT 22.8 % (36-48); HEMOGLOBIN 7.4 g/dL (12.0-16.0); LYMPHOCYTES # (AUTO) 1.4 K/uL (2.5-16.5); LYMPHOCYTES % (AUTO) 8.1 % (20.5-51.1); MEAN CORPUSCULAR HEMOGLOBIN 29 pg (27-31); MEAN CORPUSCULAR HGB CONC 32 g/dL (33-37); MONOCYTES # (AUTO) 0.9 K/uL (0.8-1.0); MONOCYTES % (AUTO) 4.9 % (1.7-9.3); NEUTROPHILS # (AUTO) 15.3 K/uL (1.8-7.7); NEUTROPHILS % (AUTO) 86.1 % (42.2-75.2); PLATELET COUNT (AUTO) 319 K/uL (140-450); RED BLOOD CELL COUNT(AUTO) 2.59 MIL/uL (4.20-5.40); RED CELL DISTRIBUTION WIDTH 15.7 % (11.6-13.7); WHITE BLOOD COUNT (AUTO) 17.8 K/uL (4.8-10.8)
--- NOTE | 2017-08-24 07:44 | NUR ---
ASSUMED CONTINUITY OF CARE. NO SIGNS AND SYMPTOMS OF ACUTE DISTRESS NOTED. INITIAL ASSESSMENT DONE. KEEP COMFORTABLE ON BED. CALL LIGHT WITHIN REACH.
--- NOTE | 2017-08-24 07:44 | NUR ---
ENDORSED PLAN OF CARE TO NURSE FERRERA. PATIENT IS IN STABLE CONDITION.
[2017-08-24 07:57] LABS: ANION GAP 17.9 (8-16); CARBON DIOXIDE 23.5 mmol/L (21-32); POTASSIUM 4.4 mmol/L (3.5-5.1)
[2017-08-24 08:00] VITALS: BP 110/61
[2017-08-24 08:05] LABS: MAGNESIUM 1.3 mg/dL (1.8-2.4); PHOSPHORUS 4.8 mg/dL (2.5-4.9)
[2017-08-24] MEDS: FOLIC ACID 1 MG TAB PO SCH (08:25)
[2017-08-24] MEDS: DOCUSATE SODIUM 100 MG GELCAP PO SCH (08:25)
[2017-08-24] MEDS: LACTOBACILLUS RHAMNOSUS GG 1 EACH CAP PO SCH (08:25)
[2017-08-24] MEDS: VITAMIN B COMPLEX W/C 1 TAB PO SCH (08:25)
[2017-08-24] MEDS: FERROUS GLUCONATE 324 MG TAB PO SCH ×2 (08:25→16:45)
[2017-08-24 08:36] LABS: CREATININE 5.3 mg/dL (0.6-1.3)
[2017-08-24] MEDS ORDERED: EPOETIN ALFA 10,000 UNITS/ML VIAL SUBQ SCH (09:00)
[2017-08-24] MEDS: HYDROcodone/APAP 5/325 MG 1 TAB TAB PO PRN (09:24)
--- NOTE | 2017-08-24 11:34 | NUR ---
INFORMED DR. OREILLY ABOUT ABOUT PT. MAG 1.3, LATEST HGB/HCT, AND HD SCHEDULED.
[2017-08-24 12:00] VITALS: BP 141/60
--- NOTE | 2017-08-24 12:49 | NUR ---
PHYSICAL THERAPY CO-SIGN The Physical Therapy Progress Notes documented by Curriculum And Instruction Director have been reviewed. I CONCUR W/BANQUET STEWARD NOTE; CONT PER TX PLAN Reviewed/Co-Signed by: Anna Chen, PT Documentation Done by: FREDERICK PEREZ PTA Addendum: 08/24/17 at 1249 by Anna Chen PT Amended: Links added.
--- NOTE | 2017-08-24 13:20 | NUR ---
WENT TO BATHROOM WITHOUT ASSISTANCE. TOLERATED WELL. NO C/O PAIN. NO SOB, NOTED.
[2017-08-24] MEDS ORDERED: MAG SULF 2000 MG/WATER PREMIX 100 ML IV SCH ×2 (15:30→17:30)
--- NOTE | 2017-08-24 15:59 | NUR ---
FAXED CONCURRENT REVIEW TO [facility] [phone] PHONE CAROLINE [phone]. I CALLED CAROLINE AND INFORMED HER THAT PATIENT DID NOT NEED TRANSFER, PER DR. OREILLY.
[2017-08-24 16:00] VITALS: BP 103/48
[2017-08-24] MEDS ORDERED: oxyCODONE/APAP 5/325 MG 1 TAB TAB PO PRN (16:25)
[2017-08-24] MEDS ORDERED: ACET-9494 PO (18:48)
[2017-08-24] MEDS ORDERED: METR500T1 PO (18:48)
[2017-08-24] MEDS ORDERED: AMOX-1000 PO (18:48)
[2017-08-24] MEDS ORDERED: LACT10CA PO (18:55)
--- NOTE | 2017-08-24 19:20 | NUR ---
BEDSIDE REPORT GIVEN TO J[facility]AN [facility] -YVAN. IN STABLE CONDITION.
--- NOTE | 2017-08-24 19:21 | NUR ---
RECEIVED REPORT FROM ASSISTANT MERCHANDISER RN. PATIENT IS AA0X4, HAS NO SIGNS AND SYMPTOMS OF ACUTE DISTRESS NOTED AT THIS TIME. PATIENT HAS IV TO THE RIGHT ARM 22G INFUSING MAGNESIUM AT THIS TIME. HAS LEFT AV SHUNT ON UPPER ARM. DISCUSSED PLAN OF CARE WITH PATIENT AND SHE VERBALIZED UNDERSTANDING. BED IN LOWEST POSITION, SIDE RAILS UP X2, CALL LIGHT WITHIN REACH. WILL CONTINUE TO MONITOR. Addendum: 08/24/17 at 2003 by Danna Harris RN RECEIVED REPORT FROM DAY SHIFT NURSE.
[2017-08-24 19:52] VITALS: BP 111/55
--- NOTE | 2017-08-24 19:57 | NUR ---
PATIENT IS AWARE THAT THERE IS A DISCHARGE ORDER IN PLACE. DAUGHTER WAS HERE BUT LEFT SAYING SHE WILL BE BACK. WAITING FOR MAGNESIUM TO FINISH INFUSING. WILL CONTINUE TO MONITOR.
--- NOTE | 2017-08-24 22:25 | NUR ---
GAVE PATIENT DISCHARGE INSTRUCTIONS. INFORMED HER THAT THERE ARE A COUPLE OF PRESCRIPTIONS FOR HER IN THE PACKET PROVIDED. INFORMED HER OF THE MEDICATIONS. GAVE HER INSTRUCTIONS TO SEEK EMERGENCY MEDICAL ATTENTION IF HER SIGNS AND SYMPTOMS WORSEN. TO FOLLOW UP WITH HER PRIMARY CARE PHYSICIAN. PATIENT VERBALIZED UNDERSTANDING. REMOVED IV FROM SITE. CATHETER INTACT. REMOVED ID BANDS. WILL WHEEL PATIENT OUT. PATIENT IN STABLE CONDITION.
== END 2017-08-24 22:25 | disposition home or self-care (01) | DRG 720 ==
LOC: MED 13:17 → MTU 16:13
PROVIDERS: ADMIT General Practice; ATTEND General Practice
PROC: 30233N1 Transfusion of Nonautologous Red Blood Cells into Peripheral Vein, Percutaneous Approach (ICD-10-PCS; principal; 2017-08-23)
PROC: 5A1D70Z Performance of Urinary Filtration, Intermittent, Less than 6 Hours Per Day (ICD-10-PCS; 2017-08-23)
PROC: 5A1D70Z Performance of Urinary Filtration, Intermittent, Less than 6 Hours Per Day (ICD-10-PCS; 2017-08-23)
DX: A41.9 Sepsis, unspecified organism (principal); N17.0 Acute kidney failure with tubular necrosis; J69.0 Pneumonitis due to inhalation of food and vomit; E43 Unspecified severe protein-calorie malnutrition; J91.8 Pleural effusion in other conditions classified elsewhere; N18.6 End stage renal disease; D68.69 Other thrombophilia; I12.0 Hypertensive chronic kidney disease with stage 5 chronic kidney disease or end stage renal disease; E11.22 Type 2 diabetes mellitus with diabetic chronic kidney disease; N39.0 Urinary tract infection, site not specified; Z99.2 Dependence on renal dialysis; N83.201 Unspecified ovarian cyst, right side; E83.42 Hypomagnesemia; E87.5 Hyperkalemia; K80.20 Calculus of gallbladder without cholecystitis without obstruction; D63.1 Anemia in chronic kidney disease; K59.00 Constipation, unspecified; I35.0 Nonrheumatic aortic (valve) stenosis; E11.69 Type 2 diabetes mellitus with other specified complication; I42.9 Cardiomyopathy, unspecified; N20.0 Calculus of kidney; E66.3 Overweight; Z68.27 Body mass index [BMI] 27.0-27.9, adult; Z83.3 Family history of diabetes mellitus; Z82.49 Family history of ischemic heart disease and other diseases of the circulatory system
CPT/HCPCS: 36415; 36600; 70450; 71045; 71250; 74150; 76604; 80048; 80053; 80305; 81001; 82607; 82746; 82803; 82948; 83036; 83540; 83605; 83690; 83735; 83880; 84100; 84134; 84443; 84484; 85025; 85045; 85610; 85730; 86704; 86706; 86708; 86709; 86803; 86886; 86900; 86901; 86920; 87040; 87081; 87086; 87186; 87340; 93005; 93880; 93925; 93970; 96361; 96374; 96375; 97110; 97116; 97140; 97530; 99291; C1758; J0885; J1815; J1885; J2270; J2405; J2543; J2916; J3490; J7030; J7060; P9016; Q0092; Q0163

== ENCOUNTER 2020-12-07 08:16 | Inpatient (IN) | payer MEDICAID ==
[~2020-12-07] VITALS: Ht 154.9 cm; Wt 63.5 kg
[~2020-12-07 08:16] MED LIST: AMOX-1000 PO; CALC667C12 PO; LACT10CA PO; METR500T1 PO; OXYC-304 PO; VITA1TAB83 PO
[2020-12-07 08:19] VITALS: BP 150/74
--- NOTE | 2020-12-07 08:23 | NUR ---
PT TAKEN TO ER BED 7.
--- NOTE | 2020-12-07 08:37 | NUR ---
60 Y/O FEMALE BIBA FROM HOME C/O ABD PAIN X1DAY DURING DIALYSIS. DENIES N/V, DENIES FEVER/CHILLS, +DIZZINESS. ABD IS SOFT, ROUND, NON-TENDER TO PALPATION, BOWEL SOUNDS ACTIVE X4, LAST BM 12/05/20. PMH: ESRD, DM, HTN NKA Addendum: 12/07/20 at 1417 by MEG Sx: Left nephrectomy, cholecystectomy AV shunt left upper arm
[2020-12-07] MEDS ORDERED: ONDANSETRON 4 MG/2 ML VIAL IVP ONE (09:25)
[2020-12-07] MEDS ORDERED: MORPHINE SULFATE 2 MG/ML SYR IVP ONE (09:25)
--- NOTE | 2020-12-07 09:32 | NUR ---
EMT at bedside for EKG
[2020-12-07 09:55] LABS: BASOPHILS % (AUTO) 0.2 % (0.0-2.0); EOSINOPHILS # (AUTO) 0.1 K/uL (0-0.4); EOSINOPHILS % (AUTO) 0.6 % (0.0-4.0); HEMATOCRIT 32.2 % (36-48); HEMOGLOBIN 10.8 g/dL (12.0-16.0); LYMPHOCYTES # (AUTO) 0.9 K/uL (2.5-16.5); LYMPHOCYTES % (AUTO) 9.5 % (20.5-51.1); MEAN CORPUSCULAR HEMOGLOBIN 31 pg (27-31); MEAN CORPUSCULAR HGB CONC 34 g/dL (33-37); MEAN CORPUSCULAR VOLUME 92.6 fL (80-94); MONOCYTES # (AUTO) 0.6 K/uL (0.8-1.0); MONOCYTES % (AUTO) 6.4 % (1.7-9.3); NEUTROPHILS # (AUTO) 8.1 K/uL (1.8-7.7); NEUTROPHILS % (AUTO) 83.3 % (42.2-75.2); PLATELET COUNT (AUTO) 196 K/uL (140-450); RED BLOOD CELL COUNT(AUTO) 3.47 MIL/uL (4.20-5.40); RED CELL DISTRIBUTION WIDTH 15.4 % (11.6-13.7); WHITE BLOOD COUNT (AUTO) 9.8 K/uL (4.8-10.8)
--- NOTE | 2020-12-07 10:00 | NUR ---
PT TAKEN TO [facility]EDITH.
--- NOTE | 2020-12-07 10:03 | NUR ---
PT TAKEN TO ER BED 7 VIA VIRI.
[2020-12-07 10:36] LABS: ANION GAP 19.7 (8-16); CARBON DIOXIDE 28.8 mmol/L (21-32); POTASSIUM 4.5 mmol/L (3.5-5.1)
--- NOTE | 2020-12-07 10:41 | NUR ---
Patient reports + relief to nausea, states no relief to pain 12/12. Dr. Coffey made aware
--- NOTE | 2020-12-07 10:42 | NUR ---
Patient reports unable to void at this time. Dr. Coffey made aware to NPO at this time.
[2020-12-07] MEDS ORDERED: MORPHINE SULFATE 4 MG/ML SYR IVP ONE (10:45)
[2020-12-07 10:46] LABS: CREATININE 6.8 mg/dL (0.6-1.3)
[2020-12-07 10:55] LABS: ALBUMIN 2.9 g/dL (3.4-5.0); TOTAL BILIRUBIN 0.6 mg/dL (0.0-1.0)
[2020-12-07] MEDS ORDERED: metroNIDAZOLE 500 MG/NS PREMIX 100 ML IV ONE (11:15)
[2020-12-07] MEDS ORDERED: cefTRIAXone 1,000 MG VIAL ONE (11:20)
[2020-12-07] MEDS ORDERED: LISI-487 PO (11:35)
[2020-12-07] MEDS ORDERED: ACET-9882 PO (11:35)
[2020-12-07] MEDS ORDERED: IBUP-2213 PO (11:35)
[2020-12-07] MEDS ORDERED: KETOROLAC 30 MG/ML VIAL IVP PRN (11:45)
[2020-12-07] MEDS ORDERED: MORPHINE SULFATE 2 MG/ML SYR IVP PRN (11:45)
[2020-12-07] MEDS ORDERED: KCL 20 MEQ/WATER INJ PREMIX 200 ML IV PRN (11:45)
[2020-12-07] MEDS ORDERED: ACETAMINOPHEN 325 MG TAB PO PRN (11:45)
[2020-12-07] MEDS ORDERED: HYDROcodone/APAP 7.5/325 MG 1 TAB PO PRN (11:45)
[2020-12-07] MEDS ORDERED: DOCUSATE SODIUM 100 MG GELCAP PO PRN (11:45)
[2020-12-07] MEDS ORDERED: ONDANSETRON 4 MG/2 ML VIAL IM/IVP PRN (11:45)
--- NOTE | 2020-12-07 12:30 | NUR ---
Patient seun assisted to restroom for UA.
--- NOTE | 2020-12-07 12:35 | NUR ---
Patient placed back onto monitor tech and ABX IVPB continued. VSS; respirations even/unlabored. Bed locked in lowest position, side rails x1.
--- NOTE | 2020-12-07 12:40 | NUR ---
NATHANIEL walked to lab and handed to CPT. Richar
[2020-12-07] MEDS: DEXT 5% /NACL 0.9% 1,000 ML IV SCH ×2 (12:48→20:05)
--- NOTE | 2020-12-07 12:51 | NUR ---
Dr. Young is evaluating patient at bedside
--- NOTE | 2020-12-07 13:06 | NUR ---
Lab at bedside
[2020-12-07 13:25] LABS: CHOL/HDL RATIO 5.8 (1-4.5); FREE T4 (FREE THYROXINE) 1.15 ng/dL (0.76-1.46); MAGNESIUM 2.4 mg/dL (1.8-2.4); PHOSPHORUS 4.8 mg/dL (2.5-4.9); THYROID STIMULATING HORMONE 0.7 uIU/mL (0.34-3.74)
[2020-12-07 13:48] LABS: PROTHROMBIN TIME 10.1 secs (10.8-13.4)
[2020-12-07 13:49] LABS: APPEARANCE,URINE CLEAR (CLEAR); BILIRUBIN,URINE NEGATIVE (NEGATIVE); BLOOD, URINE 2+ (NEGATIVE); COLOR,URINE YELLOW (YELLOW); LEUKOCYTE ESTERASE ,URINE NEGATIVE (NEGATIVE); NITRITE, URINE NEGATIVE (NEGATIVE); PH,URINE 8.5 (5.0-9.0); UGLUCOSE 1+ (NEGATIVE)
[2020-12-07 14:20] LABS: BARBITURATE, URINE NEGATIVE ng/ml (NEG <=200); BENZODIAZEPINE, URINE NEGATIVE ng/mL (NEG <=200); CANNABINOID, URINE NEGATIVE ng/mL (NEG <=50); COCAINE, URINE NEGATIVE ng/mL (NEG <=300); OPIATE, URINE POSITIVE ng/mL (NEG <=2000); PHENCYCLIDINE SCREEN,URINE NEGATIVE ng/mL (NEG <=25)
--- NOTE | 2020-12-07 14:31 | NUR ---
Patient resting with both eyes closed in semi-fowlers position. property assessment monitor in place and IVF continued. Patient states pain relief, 5/10 at this time. Denies nausea. Bed locked in lowest position, side rails x 1, call light in reach.
[2020-12-07 14:52] LABS: RBC,URINE 11-20 (MOD) /HPF (0-5)
[2020-12-07 14:53] LABS: WBC,URINE 0-5 /HPF (0-5); YEAST,URINE Moderate /HPF (None Seen)
--- NOTE | 2020-12-07 15:46 | NUR ---
Patient resting with both eyes closed. quality assurance monitor chassis and IVF continued. All pt needs met.
--- NOTE | 2020-12-07 17:00 | NUR ---
Patient reports headache. PRN orders to be given
--- NOTE | 2020-12-07 17:20 | NUR ---
Patient states + relief to headache; denies any pain 0/10. Denies nausea. telemetry monitor in place. VSS; respirations even/unlabored. SpO2 94% on room air. Bed locked in lowest position, side rails x 1, call light in reach.
--- NOTE | 2020-12-07 19:21 | NUR ---
Report and transfer of care endorsed to YVAN Stone.
--- NOTE | 2020-12-07 19:30 | NUR ---
ASSUMED CARE OF PATIENT AT THIS TIME
--- NOTE | 2020-12-07 20:10 | NUR ---
REPORT GIVEN TO MR. PILAR SANTORO FOR TRANSFER TO BED 114 TELE
[2020-12-07 21:00] VITALS: BP 121/48
[2020-12-07] MEDS ORDERED: PANTOPRAZOLE 40 MG TABEC PO SCH (21:00)
--- NOTE | 2020-12-07 21:00 | NUR ---
PT CURRENTLY LYING IN BED 114-A. NO C/O PAIN/DISCOMFORT. IVF INFUSING WELL AT 120ML/HR. CALL LIGHT AND BELONGINGS W/I REACH. BED IN LOW POSITION, WHEELS LOCKED, SR UP AT HOB, AND HOB ELEVATED TO PT PREFERENCE. HEAVY FORGER HELPER ON - SINUS RHYTHM BY TELE MONITOR.
[2020-12-08] MEDS: DEXT 5% /NACL 0.9% 1,000 ML IV SCH (04:25)
--- NOTE | 2020-12-08 06:42 | NUR ---
PATIENT HAS BEEN SCREENED AND CATEGORIZED MODERATE NUTRITION RISK. PATIENT WILL BE SEEN WITHIN 3-5 DAYS OF ADMISSION. 12/09/20 12/11/[address]
[2020-12-08 08:08] LABS: T4 (THYROXINE) 7.3 ug/dL (4.5-12.0)
== END 2020-12-08 08:30 | disposition left against medical advice (07) | DRG 720 ==
LOC: MED 08:16 → MTU 11:49
PROVIDERS: ADMIT Family Medicine; ATTEND Family Medicine
DX: A41.9 Sepsis, unspecified organism (principal); N17.0 Acute kidney failure with tubular necrosis; E43 Unspecified severe protein-calorie malnutrition; K57.20 Diverticulitis of large intestine with perforation and abscess without bleeding; N12 Tubulo-interstitial nephritis, not specified as acute or chronic; E11.22 Type 2 diabetes mellitus with diabetic chronic kidney disease; D64.9 Anemia, unspecified; N18.6 End stage renal disease; N83.9 Noninflammatory disorder of ovary, fallopian tube and broad ligament, unspecified; K57.80 Diverticulitis of intestine, part unspecified, with perforation and abscess without bleeding; Z53.29 Procedure and treatment not carried out because of patient's decision for other reasons; I12.0 Hypertensive chronic kidney disease with stage 5 chronic kidney disease or end stage renal disease; Z79.1 Long term (current) use of non-steroidal anti-inflammatories (NSAID); Z90.49 Acquired absence of other specified parts of digestive tract; Z79.899 Other long term (current) drug therapy; Z99.2 Dependence on renal dialysis; Z68.26 Body mass index [BMI] 26.0-26.9, adult; Z90.5 Acquired absence of kidney
CPT/HCPCS: 36415; 71045; 80053; 80305; 81001; 82150; 83036; 83690; 83735; 83880; 84100; 84436; 84439; 84443; 84479; 84484; 85025; 85610; 85730; 87040; 93005; 96365; 96367; 96375; 99285; J0696; J1885; J2270; J2405; J3490

== ENCOUNTER 2021-03-11 12:23 | Inpatient (IN) | payer MEDICAID, SELFPAY ==
[~2021-03-11] VITALS: Ht 162.6 cm; Wt 62.6 kg
[~2021-03-11 12:23] MED LIST changes: +ACET-9882 PO; -AMOX-1000 PO; +IBUP-2213 PO; -LACT10CA PO; +LISI-487 PO; -METR500T1 PO; -OXYC-304 PO; -VITA1TAB83 PO
[2021-03-11 12:30] VITALS: BP 144/96
--- NOTE | 2021-03-11 12:30 | NUR ---
BIBA to bed 05
--- NOTE | 2021-03-11 12:35 | NUR ---
61 y/o F BIBA from [facility] c/o chest pain during dialysis treatment. Per EMS, pt with left upper chest pain, 10/10, pressure/intermittent, non-radiating; increased with inspiration. +Cough/CP x 3 weeks. Pt MWF dialysis patient, completed 3 hrs of 3.5 hr treatment today. L Arm Shunt; R upper chest port. Pt placed into a gown and media monitor. HR 124. Bed locked in lowest position, side rails x 2. PMH: ESRD, anemia, hypotension (from hemodialysis), HTN, Meds: pepcid, omperazole, lisinopril, tramadol, isosorbide dinitate NKDA
--- NOTE | 2021-03-11 14:10 | NUR ---
RAD at bedside
--- NOTE | 2021-03-11 14:26 | NUR ---
Lab at bedside
[2021-03-11 14:40] LABS: BASOPHILS % (AUTO) 0.5 % (0.0-2.0); EOSINOPHILS # (AUTO) 0.1 K/uL (0-0.4); EOSINOPHILS % (AUTO) 2.9 % (0.0-4.0); HEMATOCRIT 31.4 % (36-48); HEMOGLOBIN 10.3 g/dL (12.0-16.0); LYMPHOCYTES # (AUTO) 1.3 K/uL (2.5-16.5); LYMPHOCYTES % (AUTO) 26.1 % (20.5-51.1); MEAN CORPUSCULAR HEMOGLOBIN 30 pg (27-31); MEAN CORPUSCULAR HGB CONC 33 g/dL (33-37); MEAN CORPUSCULAR VOLUME 91.5 fL (80-94); MONOCYTES # (AUTO) 0.3 K/uL (0.8-1.0); MONOCYTES % (AUTO) 6.1 % (1.7-9.3); NEUTROPHILS # (AUTO) 3.2 K/uL (1.8-7.7); NEUTROPHILS % (AUTO) 64.4 % (42.2-75.2); PLATELET COUNT (AUTO) 234 K/uL (140-450); RED BLOOD CELL COUNT(AUTO) 3.44 MIL/uL (4.20-5.40); RED CELL DISTRIBUTION WIDTH 18.1 % (11.6-13.7); WHITE BLOOD COUNT (AUTO) 4.9 K/uL (4.8-10.8)
[2021-03-11 15:01] LABS: PROTHROMBIN TIME 9.9 secs (10.8-13.4)
[2021-03-11 15:02] LABS: ANION GAP 7.1 (8-16); CARBON DIOXIDE 35.8 mmol/L (21-32); POTASSIUM 3.9 mmol/L (3.5-5.1); TOTAL BILIRUBIN 0.4 mg/dL (0.0-1.0)
--- NOTE | 2021-03-11 15:51 | NUR ---
Lab at bedside for redraw
--- NOTE | 2021-03-11 15:54 | NUR ---
Patient resting in semi-fowlers position in position of comfort. desk monitor in place. Bed locked in lowest position, side rails x 2.
--- NOTE | 2021-03-11 15:55 | NUR ---
Pt d/c'd from cco & president and ambulated to restroom with steady gait.
--- NOTE | 2021-03-11 16:05 | NUR ---
Urine sample collected. Pt ambulated back to bed 05 and placed back onto cardiac cath lab radiology technologist. Bed locked in lowest position, side rails x 2.
--- NOTE | 2021-03-11 16:30 | NUR ---
Urine sample handed to CPT Terese at ER bedside
--- NOTE | 2021-03-11 16:43 | NUR ---
Dr. Patino is evaluating pt at bedside
--- NOTE | 2021-03-11 16:53 | NUR ---
Roseline kumar collected, handed to CPT Terese at ER bedside
--- NOTE | 2021-03-11 19:15 | NUR ---
Report and transfer of care endorsed to YVAN Rosas
--- NOTE | 2021-03-11 20:15 | NUR ---
AMBULATED TO BR THEN BACK TO BED AND MADE COMFORTABLE
--- NOTE | 2021-03-11 22:17 | NUR ---
AUTH #: [id number] PER ER ADMISSION UNABLE TO TRANSFER DUE TO NO BEDS AT [facility]
--- NOTE | 2021-03-11 23:18 | NUR ---
ADMIT ORDERS RECEIVED
[2021-03-12] MEDS ORDERED: ACETAMINOPHEN 325 MG TAB PO PRN
[2021-03-12] MEDS ORDERED: HYDROcodone/APAP 7.5/325 MG 1 TAB PO PRN
[2021-03-12] MEDS ORDERED: POTASSIUM CHLORIDE 10 MEQ TABER PO PRN
[2021-03-12] MEDS ORDERED: DOCUSATE SODIUM 100 MG GELCAP PO PRN
[2021-03-12] MEDS ORDERED: guaiFENesin DM 200/20 MG-10 ML 10 ML UDC PO PRN
[2021-03-12] MEDS ORDERED: ZOLPIDEM 5 MG TAB PO PRN
[2021-03-12] MEDS ORDERED: ONDANSETRON 4 MG/2 ML VIAL IM/IVP PRN
--- NOTE | 2021-03-12 01:41 | NUR ---
VQ SCAN BEGUN
[2021-03-12 02:52] LABS: CHOL/HDL RATIO 3.6 (1-4.5); FREE T4 (FREE THYROXINE) 1.43 ng/dL (0.76-1.46); MAGNESIUM 1.7 mg/dL (1.8-2.4); PHOSPHORUS 3.5 mg/dL (2.5-4.9); THYROID STIMULATING HORMONE 0.57 uIU/mL (0.34-3.74)
--- NOTE | 2021-03-12 04:00 | NUR ---
AWAKE, AMBULATED TO BR. BACK TO BED AND MADE COMFORTABLE
[2021-03-12 04:29] LABS: APPEARANCE,URINE CLEAR (CLEAR); BILIRUBIN,URINE NEGATIVE (NEGATIVE); BLOOD, URINE 3+ (NEGATIVE); COLOR,URINE YELLOW (YELLOW); LEUKOCYTE ESTERASE ,URINE NEGATIVE (NEGATIVE); NITRITE, URINE NEGATIVE (NEGATIVE); PH,URINE 8.5 (5.0-9.0); UGLUCOSE 1+ (NEGATIVE)
[2021-03-12 05:00] LABS: RBC,URINE 50-80 /HPF (0-5); WBC,URINE 0-5 /HPF (0-5)
[2021-03-12 05:01] LABS: BARBITURATE, URINE NEGATIVE ng/ml (NEG <=200); BENZODIAZEPINE, URINE NEGATIVE ng/mL (NEG <=200); CANNABINOID, URINE NEGATIVE ng/mL (NEG <=50); COCAINE, URINE NEGATIVE ng/mL (NEG <=300); OPIATE, URINE POSITIVE ng/mL (NEG <=2000); PHENCYCLIDINE SCREEN,URINE NEGATIVE ng/mL (NEG <=25)
--- NOTE | 2021-03-12 05:55 | NUR ---
Avani kat in [facility] - 03/12/21 at 0621 by NORMAN unit #1 ED [facility]
[2021-03-12] MEDS ORDERED: lisinopriL 20 MG TAB ONE (06:40)
--- NOTE | 2021-03-12 07:33 | NUR ---
Avani kat in [facility] - 03/12/21 at 0733 by MEDKEITH REPORT RECIEVED FROM YVAN PINTO FOR TRANSFER OF CARE
--- NOTE | 2021-03-12 07:59 | NUR ---
LAB AT [facility], PT REFUSED BLOOD WORK. PT STATED " THEY TOOK TO MUCH BLOOD ALREADY AND I AM VERY DIZZIE".
--- NOTE | 2021-03-12 08:55 | NUR ---
PT WANT TO LEAVE AMA, DR TOVAR NOTIFIED.
[2021-03-12] MEDS ORDERED: PANTOPRAZOLE 40 MG TABEC PO SCH (09:00)
[2021-03-12] MEDS ORDERED: lisinopriL 20 MG TAB PO SCH (09:00)
[2021-03-12 09:23] VITALS: BP 206/109
--- NOTE | 2021-03-12 09:29 | NUR ---
Patient does not wish to proceed with medical care recommended by DR TOVAR. Patient given information related to possible complications, up to and including , which could occur as a result of leaving hospital at this time. Patient verbalizes understanding of risks involved leaving against medical advice. Patient has signed AMA form.
[2021-03-13 09:06] LABS: T4 (THYROXINE) 10.1 ug/dL (4.5-12.0)
== END 2021-03-12 09:20 | disposition left against medical advice (07) | DRG 137 ==
LOC: MED 12:23 → MTU 23:16
PROVIDERS: ADMIT Family Medicine; ATTEND Family Medicine
DX: J69.0 Pneumonitis due to inhalation of food and vomit (principal); N17.0 Acute kidney failure with tubular necrosis; E44.0 Moderate protein-calorie malnutrition; N18.6 End stage renal disease; D63.8 Anemia in other chronic diseases classified elsewhere; I12.0 Hypertensive chronic kidney disease with stage 5 chronic kidney disease or end stage renal disease; Z20.822 Contact with and (suspected) exposure to COVID-19; E11.22 Type 2 diabetes mellitus with diabetic chronic kidney disease; E86.0 Dehydration; E83.42 Hypomagnesemia; Z99.2 Dependence on renal dialysis; Z79.899 Other long term (current) drug therapy; Z68.23 Body mass index [BMI] 23.0-23.9, adult
CPT/HCPCS: 36415; 71045; 78582; 80053; 80305; 81001; 82150; 83036; 83690; 83735; 83880; 84100; 84436; 84439; 84443; 84479; 84484; 85025; 85379; 85610; 85730; 93005; 99285